=== PATIENT | male | born 1985 | race Caucasian/White ===

== ENCOUNTER → 2024-05-31 14:47 | Outpatient (BNVA) | payer OTHER, SELFPAY | PROVIDERS: PCP Family Medicine; Visit Provider Family Medicine | DX: F41.8 Other specified anxiety disorders (principal); L70.9 Acne, unspecified; F84.0 Autistic disorder; H93.19 Tinnitus, unspecified ear | CPT/HCPCS: 96127; 99212 ==

== ENCOUNTER 2024-06-14 13:28 | Outpatient (REF) | payer OTHER, SELFPAY ==
[2024-06-14 18:19] LABS: Appearance Urine Clear; Color Urine Yellow; Glucose Urine UA Negative (Negative); Leukocyte Esterase Urine Negative (Negative); Nitrite Urine Negative (Negative); PH 7.5 (5.0-9.0); Specific Gravity - Urine >= 1.030 (1.005-1.025); Urine Blood Negative (Negative); Urine Ketones Negative (Negative); Urine Protein Negative (Neg-Trace)
[2024-06-14 18:33] LABS: Alanine Aminotransferase 28 U/L (0-40); Alkaline Phosphatase 83 U/L (39-117); Anion Gap 11 (12-20); Aspartate Amino Transferase 27 U/L (5-37); Bilirubin Total 0.5 mg/dL (0.0-1.0); Blood Urea Nitrogen 13 mg/dL (9-16); Calcium 8.9 mg/dL (8.4-10.2); Carbon Dioxide 24 mmol/L (22-29); Chloride 108 mmol/L (96-108); Cholesterol 251 mg/dL (<200); Estimated Glomerular Filt Rate > 60; Glucose Fasting 104 mg/dL (60-99); HDL Cholesterol 38 mg/dL (>40); LDL Cholesterol Calculated 180 mg/dL (<100); Sodium 139 mmol/L (135-145); Total Protein 7.8 g/dL (6.5-8.0); Triglycerides 169 mg/dL (<150)
[2024-06-14 18:52] LABS: TSH reflex Free T4 1.03 uIU/mL (0.32-4.0)
[2024-06-14 18:53] LABS: Creatinine Urine 165.98 mg/dL; Microalbum/Creatinine Ratio Ur 3.6 ug/mg cr (<30)
== END 2024-06-14 13:29 | disposition home or self-care (01) ==
LOC: HO.WFDLDS 13:28
PROVIDERS: Visit Provider Family Medicine
DX: Z00.00 Encounter for general adult medical examination without abnormal findings (principal); I10 Essential (primary) hypertension
CPT/HCPCS: 36415; 80053; 80061; 81003; 82043; 82570; 84443